=== PATIENT | male | born 1960 | race Caucasian/White ===

== ENCOUNTER → 2016-12-10 | Outpatient (CLI) | payer SELFPAY ==
[2016-12-10 09:38] LABS: Basophils # (A) 0.1 k/uL (0-0.2); Basophils % (A) 1 %; CHCM 35.5; Eosinophils # (A) 0.1 k/uL (0-0.7); Eosinophils % (A) 2 %; HCT 49.5 % (39.0-53.0); HDW 2.81; HGB 16.8 gm/dL (13.0-17.5); Luc # (Auto) 0.14; Luc % (Auto) 2; Lymphocytes # (A) 2.3 k/uL (1.0-4.8); Lymphocytes % (A) 32 %; MCH 29.8 pg (25.0-35.0); MCHC 33.9 g/dL (31.0-37.0); MCV 87.9 fL (80.0-100.0); Mean Platelet Volume 8.1; Monocytes # (A) 0.4 k/uL (0-1.0); Monocytes % (A) 6 %; Neutrophils # (A) 4.1 k/uL (1.3-7.7); Neutrophils % (A) 57 %; RBC 5.63 m/uL (4.30-5.90); RDW 13.2 % (11.5-15.5); WBC 7.2 k/uL (3.8-10.6); WBC (Perox) 7.33
[2016-12-10 13:17] LABS: ALT 47 U/L (21-72); AST 29 U/L (17-59); Alkaline Phosphatase 89 U/L (38-126); Anion Gap 11 mmol/L; Blood Urea Nitrogen 16 mg/dL (9-20); Calcium 9.3 mg/dL (8.4-10.2); Carbon Dioxide 26 mmol/L (22-30); Chloride 105 mmol/L (98-107); Cholesterol 140 mg/dL (<200); Glucose 109 mg/dL (74-99); HDL Cholesterol 37 mg/dL (40-60); Non-African American GFR(MDRD) >60 (>60 ml/min/1.73 sqM); Potassium 4.2 mmol/L (3.5-5.1); Sodium 142 mmol/L (137-145); Total Bilirubin 0.7 mg/dL (0.2-1.3); Total Protein 7.2 g/dL (6.3-8.2); Triglycerides 112 mg/dL (<150)
== END | disposition home or self-care (01) ==
LOC: LABWHC1 09:20
PROVIDERS: ATTEND Internal Medicine
DX: E78.2 Mixed hyperlipidemia (principal); I10 Essential (primary) hypertension; Z12.5 Encounter for screening for malignant neoplasm of prostate
CPT/HCPCS: 80061; 80053; 85025; 36415; G0103

== ENCOUNTER → 2020-04-28 | Outpatient (CLI) | payer OTHER ==
[2020-04-28 10:06] LABS: Basophils # (A) 0.1 k/uL (0-0.2); Basophils % (A) 1 %; Eosinophils # (A) 0.1 k/uL (0-0.7); Eosinophils % (A) 2 %; HCT 49.7 % (39.0-53.0); HGB 16.9 gm/dL (13.0-17.5); Lymphocytes # (A) 2.4 k/uL (1.0-4.8); Lymphocytes % (A) 34 %; MCH 30.3 pg (25.0-35.0); MCHC 34.1 g/dL (31.0-37.0); Mean Platelet Volume 9.1; Monocytes # (A) 0.4 k/uL (0-1.0); Monocytes % (A) 6 %; Neutrophils # (A) 3.8 k/uL (1.3-7.7); Neutrophils % (A) 54 %; Platelet Count 141 k/uL (150-450); RBC 5.58 m/uL (4.30-5.90); RDW 13.7 % (11.5-15.5); WBC 6.9 k/uL (3.8-10.6)
[2020-04-28 17:48] LABS: African American GFR (CKD) 93.7 (60.0-200.0); Albumin 4.5 g/dL (3.80-4.90); Albumin/Globulin Ratio 1.88 (1.60-3.17); Anion Gap 8.4 mmol/L (4.00-12.00); Calcium 9.4 mg/dL (8.7-10.3); Carbon Dioxide 25.6 mmol/L (21.6-31.8); Chol/HDL Ratio 3.91; Globulin 2.4 g/dL (1.6-3.3); LDL Cholesterol,Calculated 70.2 mg/dL (0.0-131.0); Non-African American GFR(CKD) 80.9 (60.0-200.0); Potassium 4.4 mmol/L (3.5-5.5); Total Bilirubin 0.7 mg/dL (0.2-1.2); Total Protein 6.9 g/dL (6.2-8.2); VLDL Calculation 22.8 mg/dL (5.00-40.00)
== END | disposition home or self-care (01) ==
LOC: LABWHC1 08:48
PROVIDERS: ATTEND Internal Medicine
DX: Z00.00 Encounter for general adult medical examination without abnormal findings (principal); Z12.5 Encounter for screening for malignant neoplasm of prostate
CPT/HCPCS: 80061; 80053; 85025; 36415; G0103

== ENCOUNTER 2024-07-03 21:22 | Observation (INO) | payer MEDICARE, OTHER ==
[~2024-07-03 21:22] MED LIST: ASPIRIN 81 MG ONE; NITROGLYCERIN OINT 1 INCH/GM PACKET TOPICAL ONE; SODIUM CHLORIDE 0.9% 1,000 ML BAG ONE
[2024-07-04] MEDS ORDERED: LORazepam 1 MG TAB ONE ×2 (00:37→21:07)
[2024-07-04] MEDS ORDERED: lisinopriL 20 MG TAB ONE ×3 (00:47→21:01)
[2024-07-04] MEDS ORDERED: MIDAZOLAM 2 MG/2 ML VIAL ONE ×2 (12:15→12:22)
[2024-07-04] MEDS ORDERED: fentaNYL (PF) 50 MCG/ML 2 ML AMP ONE (12:17)
[2024-07-04] MEDS: IOPAMIDOL-370 200ML BTL INJ ONE (12:18)
[2024-07-04] MEDS ORDERED: LIDOCAINE 1% INJ 10MG/ML (20 ML MDV) ONE (12:22)
[2024-07-04] MEDS ORDERED: VERAPAMIL 2.5 MG/ML 4 ML VIAL ONE (12:22)
[2024-07-04] MEDS ORDERED: HEPARIN SODIUM 1,000 UN/ML (10ML VL) ONE (12:22)
[2024-07-04] MEDS ORDERED: amLODIPine 5 MG TAB ONE (13:25)
[2024-07-04] MEDS ORDERED: ATORVASTATIN 40 MG TAB ONE (13:27)
[2024-07-04] MEDS ORDERED: METOPROLOL SUCCINATE (ER) 50 MG TAB.ER.24H PO ONE (13:27)
[2024-07-04] MEDS ORDERED: HEPARIN SOD,PORK IN 0.45% NACL 250 ML IV ONE (16:40)
[2024-07-05] MEDS ORDERED: HEPARIN SODIUM 1,000 UN/ML (10ML VL) ONE (00:59)
[2024-07-05] MEDS ORDERED: ASPIRIN 81 MG ONE (07:53)
[2024-07-05] MEDS ORDERED: lisinopriL 20 MG TAB ONE ×2 (07:53→21:04)
[2024-07-05] MEDS ORDERED: ATORVASTATIN 40 MG TAB ONE (07:53)
[2024-07-05] MEDS ORDERED: amLODIPine 5 MG TAB ONE (07:53)
[2024-07-05] MEDS ORDERED: METOPROLOL SUCCINATE (ER) 50 MG TAB.ER.24H PO ONE (07:53)
[2024-07-05] MEDS ORDERED: HEPARIN SOD,PORK IN 0.45% NACL 250 ML IV ONE (18:15)
[2024-07-05] MEDS ORDERED: LORazepam 1 MG TAB ONE (21:06)
[2024-07-06] MEDS ORDERED: ACETAMINOPHEN IV (For NPO) 1,000 MG/100 ML VIAL ONE (08:00)
[2024-07-06] MEDS ORDERED: ATORVASTATIN 20 MG TAB ONE (09:19)
[2024-07-06] MEDS ORDERED: METOPROLOL SUCCINATE (ER) 50 MG TAB.ER.24H PO ONE ×2 (09:19→09:37)
[2024-07-06] MEDS ORDERED: ATORVASTATIN 40 MG TAB ONE (09:19)
[2024-07-06] MEDS ORDERED: amLODIPine 5 MG TAB ONE (09:19)
[2024-07-06] MEDS ORDERED: lisinopriL 20 MG TAB ONE (09:37)
[2024-07-06] MEDS ORDERED: ASPIRIN 81 MG ONE ×2 (10:23→10:29)
--- NOTE | 2024-07-27 12:25 | CA ---
Stress Echo Report Nino Byers Age: 63 Gender: M : 1960 Exam Date: 07/04/2024 11:16 Exam Location: [place] Stress Ht (in): 70 Wt (lb): 190 Ordering Physician: Referring Physician: LUISA, Cnc Mill Programmer: Quin Sandoval RDCS Technologist Procedure CPT: Indication: Chest pain, unspecified ICD-9 Codes: R079 Rhythm: Patient History: Chest pain, hypertrension and history of ASCAD Cardiac Medications: Medications in past 24 hours: Contrast: N/A Stress Results Protocol: Erik Total dose(mL): Exercise Duration (min:sec): 10:[address] Depression (mm): Angina Score: Hall Score: METS: 11.5 Resting HR: 57 Resting BP: 175 / 96 Peak HR: 128 Peak BP: 213 / 63 Max Predicted HR: 155 83 % Max Predicted HR Target HR: 132 Double Product: [id number] Stress Summary: Patient exercised on Erik protocol for 10 minutes 2 seconds achieving 11.5 METS. Patient was able to achieve 84% of aged. Maximum heart rate. Status post terminated because patient got tired and fatigued. There was no reported chest pain or shortness of breath with activity. BP Response: normal response Reason for Termination: Reached target heart rate or work-load Cardiac Symptoms: No symptoms ECG Analysis Resting ECG: Resting ECG shows normal sinus rhythm, mild LVH by voltage criteria Stress EC mm flat ST depressions in inferolateral leads Arrhythmia: There were frequent monomorphic PVCs noticed during the stress test. There were no sustained arrhythmias Echo Analysis Resting Echo: Normal global systolic function. Mild basal to mid inferior wall hypokinesia at rest Peak Echo Analysis: This stress induced worsening of inferolateral wall motion. MEASUREMENTS (Male/Female) Normal Values CONCLUSIONS Abnormal treadmill echo stress test Ischemic ECG and echocardiographic response to treadmill exercise Excellent exercise tolerance for age achieving 11.5 METS Normal hemodynamic and clinical response to exercise Dr Jakob Miguel (Electronically Signed) Final Date: 04 July 2024 13:31
--- NOTE | 2024-07-31 19:26 | XR ---
EXAMINATION TYPE: XR chest 2V DATE OF EXAM: 07/31/2024 COMPARISON: 07/11/2024 INDICATION: Chest pain TECHNIQUE: Frontal and lateral views of the chest are obtained. FINDINGS: The heart size is normal. The pulmonary vasculature is normal. Previous left lower lobe infiltrate has resolved. No residual pneumothorax evident.. Some hyperinfla tion and increased AP diameter of the thorax is present. Consider some emphysematous change. IMPRESSION: 1. No acute pulmonary process
--- NOTE | 2024-08-02 11:07 | CT ---
Patient Nino Byers ID [id number] Order # EXAMINATION TYPE: CT chest wo con DATE OF EXAM: 07/06/2024 COMPARISON: No comparison available on downtime PACS. HISTORY: Chest pain CT DLP: 476.8 mGycm, Automated exposure control for dose reduction was used. CONTRAST: Performed injected with 0 mL of Isovue 300. TECHNIQUE: Axial images were obtained at 5 mm thick sections. Reconstructed images are reviewed on [employer] computer in the coronal plane. FINDINGS: Portion of the thyroid visualized is normal. No suspicious lung nodules or focal infiltrates are present. No enlarged mediastinal or hilar adenopathy is evident. The ascending aorta diameter at the level o f the main pulmonary artery is 3.4 cm. The main pulmonary artery diameter at the bifurcation is 2.5 cm. Coronary artery calcification is present. Limited CT sections are obtained through the upper abdomen. Abdomen is essentially unremarkable. IMPRESSION: 1. No acute pulmonary process radiographically apparent.
--- NOTE | 2024-08-07 15:52 | US ---
Site ID [facility] Nino Henning ID [id number] 1960 Age/Gender: 63Y, O Order # N/A Procedure US carotid duplex BILAT Date 07/04/2024 5:18:00 PM EXAMINATION TYPE: US carotid duplex BILAT DATE OF EXAM: 07/17/2024 COMPARISON: None, please note PACS Production downtime occurred during the radiologist interpretation of these images with limited priors/reports. CLINICAL INDICATION: 63 year old with history of open heart. TECHNIQUE: Carotid duplex ultrasound examination. Indirect Doppler criteria was utilized. FINDINGS: EXAM MEASUREMENTS: RIGHT: Peak Systolic Velocity (PSV) cm/sec ----- Right CCA: 57.3 ----- Right ICA: 89.9 ----- Right ECA: 132.3 ICA/CCA ratio: 1.6 RIGHT: End Diastole cm/sec ----- Right CCA: 14.2 ----- Right ICA: 23.3 ----- Right ECA: 30.5 LEFT: Peak Systolic Velocity (PSV) cm/sec ----- Left CCA: 60.3 ----- Left ICA: 135.7 ----- Left ECA: 77.5 ICA/CCA ratio: 2.2 LEFT: End Diastole cm/sec ----- Left CCA: 8.7 ----- Left ICA: 29.4 ----- Left ECA: 8.9 VERTEBRALS (direction of flow): Right Vertebral: Antegrade Left Vertebral: Antegrade INSIDE TECHNICAL SALES REPRESENTATIVE NOTES: Slightly limited by tortuous vessels. Slightly elevated velocity seen within the l eft lobe is still ICA and right ECA. Mild atherosclerotic plaque at the left carotid bulb. IMPRESSION: 1. Approximately 50-69 % stenosis within the proximal left ICA based on peak systolic velocity and r atio. 2. No hemodynamically significant stenosis involving the proximal right ICA. Criteria for Assigning % of Stenosis / Diameter reduction (Estimation based on the indirect measurements of the internal carotid artery velocities (ICA PSV). 1. Normal (no stenosis)=ICA PSV < 125 cm/s: ratio < 2.0: ICA EDV<40 cm/s. 2. Less than 50% stenosis=ICA PSV < 125 cm/s: ratio < 2.0: ICA EDV<40 cm/s. 3. 50 to 69% stenosis=ICA PSV of 125 to 230 cm/s: ration 2.0 ? 4.0: ICA EDV 40-100 cm/s. 4. Greater than 70% stenosis to near occlusion= ICA PSV > 230 cm/s: ratio > 4.0: ICA EDV > 100 cm/s. 5. Near occlusion= ICA PSV velocities may be low or undetectable: variable ratio and ICA EDV. 6. Total occlusion=unable to detect flow.
--- NOTE | 2024-08-07 15:52 | US ---
Site ID [facility] Nino Henning ID [id number] 1960 Age/Gender: 63Y, O Order # N/A Procedure US vein mapping BILAT Date 07/04/2024 5:33:00 PM EXAMINATION TYPE: US vein mapping BILAT DATE OF EXAM: 07/17/2024 11:54 PM COMPARISON: None, please note PACS Production downtime occurred during the radiologist interpretation of these images with limited priors/reports. CLINICAL INDICATION: 63 year old with history of open heart. SIDE PERFORMED: Bilateral TECHNIQUE: Lower extremity saphenous vein is examined and measured utilizing real time linear array sonography. DUPLEX FINDINGS: Greater Saphenous: Color flow seen Measurements in mm: Right Greater Saphenous: Groin: 5 x 5 mm High Thigh: 2 x 3 mm Mid Thigh: 2 x 2 mm Above Knee: 1 x 2 mm Knee: 3 x 4 mm Below Knee: 3 x 4 mm Mid Calf: 3 x 4 mm At Ankle: 2 x 3 mm Left Greater Saphenous: Groin: 4 x 7 mm High Thigh: 5 x 4 mm Mid Thigh: 4 x 4 mm Above Knee: 4 x 6 mm Knee: 3 x 4 mm Below Knee: 4 x 4 mm Mid Calf: 3 x 4 mm At Ankle: 2 x 2 mm IMPRESSION: 1. Bilateral GSV measurements listed above. 2. Performing surgeon to determine viability as conduit.
--- NOTE | 2024-08-07 15:53 | US ---
Site ID [facility] Patient Nino Byers ID [id number] 1960 Age/Gender: 63Y, O Order # N/A Procedure US radial artery UE LT Date 07/04/2024 5:47:00 PM EXAMINATION TYPE: Pre-Operative Non-Invasive Evaluation of the hand for Potential Radial Artery [address] st, Measurements only DATE OF EXAM: 07/17/2024 11:52 PM CLINICAL INDICATION: 63 year old with history of open heart. SIDE PERFORMED: Left TECHNIQUE: Radial artery is measured utilizing real time linear array sonography. Dominant hand: Right Duplex Findings: Radial Artery: Color flow seen Measurements in mm, transverse view: Left Radial Proximal: 4 x 4 mm Mid: 3 x 3 mm Distal: 3 x 3 mm IMPRESSION: 1. Left radial artery measurements listed above. 2. Performing surgeon to determine viability as conduit.
== END 2024-07-06 13:00 | disposition home or self-care (01) ==
LOC: UNDOADMIN 21:22 → 6NMEDSUR 21:22 → INTOOBSV 22:00 → 6NMEDSUR 22:00 → UNDODISIN 07-06 13:00
PROVIDERS: ADMIT Internal Medicine; ATTEND Internal Medicine
DX: I25.110 Atherosclerotic heart disease of native coronary artery with unstable angina pectoris (principal); T82.855A Stenosis of coronary artery stent, initial encounter; Y84.8 Other medical procedures as the cause of abnormal reaction of the patient, or of later complication, without mention of misadventure at the time of the procedure; I10 Essential (primary) hypertension; I49.3 Ventricular premature depolarization; E78.5 Hyperlipidemia, unspecified; F12.90 Cannabis use, unspecified, uncomplicated; F41.9 Anxiety disorder, unspecified; N40.0 Benign prostatic hyperplasia without lower urinary tract symptoms; Z95.5 Presence of coronary angioplasty implant and graft; Z79.82 Long term (current) use of aspirin; Z79.899 Other long term (current) drug therapy
CPT/HCPCS: 71046; 71250; 80061; 80074; 83036; 86850; 86900; 86901; 86920; 87070; 93005; 93351; 93458; 93880; 93970; 94150; 99285

== ENCOUNTER 2024-07-09 08:00 | Inpatient (IN) | payer MEDICARE, OTHER ==
[~2024-07-09 08:00] MED LIST changes: +ALBUMIN HUMAN 5% (25gm) 500 ML VIAL IVPB ONE; -ASPIRIN 81 MG ONE; +HEPARIN SODIUM,PORCINE 10,000 UNIT/ML 1 ML VIAL ONE; +LACTATED RINGERS 1,000 ML BAG ONE; +MIDAZOLAM 1 MG/ML 5 ML VIAL ONE; +MIDAZOLAM HCL 10 MG/10 ML VIAL ONE; -NITROGLYCERIN OINT 1 INCH/GM PACKET TOPICAL ONE; +PROPOFOL 10 MG/ML 20 ML VIAL IV ONE; +PROTAMINE SULFATE 10 MG/ML 25 ML VIAL IV ONE; -SODIUM CHLORIDE 0.9% 1,000 ML BAG ONE; +SODIUM CHLORIDE 0.9% 50 ML BAG ONE; +VECURONIUM 10 MG VIAL IV ONE; +ceFAZolin 10 GM VIAL IVPB ONE; +ePHEDrine 50 MG/ML 1 ML VIAL ONE; +fentaNYL (PF) 50 MCG/ML 2 ML AMP ONE; +fentaNYL (PF) 50 MCG/ML 50 ML VIAL ONE
[2024-07-09] MEDS ORDERED: NITROGLYCERIN-D5W PMX 50 MG/250 ML BOTTLE IV ONE (12:09)
[2024-07-09] MEDS ORDERED: DILTIAZEM 125 MG/25 ML VIAL IV ONE ×2 (12:09→23:59)
[2024-07-09] MEDS ORDERED: SODIUM CHLORIDE 0.9% 100 ML BAG IV ONE ×2 (12:09)
[2024-07-09] MEDS ORDERED: PAPAVERINE 30 MG/ML 2 ML VIAL ONE (12:09)
[2024-07-09] MEDS ORDERED: SODIUM CHLORIDE 0.9% 50 ML BAG IV ONE (12:09)
[2024-07-09] MEDS ORDERED: ceFAZolin 10 GM VIAL IVPB ONE (12:09)
[2024-07-09] MEDS ORDERED: SODIUM CHLORIDE 0.9% 500 ML BAG ONE (12:09)
[2024-07-09] MEDS ORDERED: HEPARIN SODIUM,PORCINE 5,000 UNIT/ML 1 ML VIAL ONE ×2 (12:09→21:37)
[2024-07-09] MEDS ORDERED: LACTATED RINGERS 1,000 ML BAG ONE (12:09)
[2024-07-09] MEDS ORDERED: ALBUMIN HUMAN 5% 250 ML IVPB ONE (12:38)
[2024-07-09] MEDS ORDERED: DEXMEDETOMIDINE/0.9% NACL(PMX) 400 MCG/100 ML IV ONE (13:23)
[2024-07-09] MEDS ORDERED: CLEVIDIPINE BUTYRATE 25 MG/50 ML VIAL IV ONE (13:23)
[2024-07-09] MEDS ORDERED: MAGNESIUM SULFATE-D5W PMX 200 ML IVPB ONE (15:03)
[2024-07-09] MEDS ORDERED: ACETAMINOPHEN IV (For NPO) 100 ML ONE ×2 (18:17→23:55)
[2024-07-09] MEDS ORDERED: METOPROLOL TARTRATE 12.5 MG TAB ONE (21:37)
[2024-07-09] MEDS ORDERED: SENNOSIDES 8.6 MG TAB ONE (21:38)
[2024-07-09] MEDS ORDERED: MUPIROCIN 2% OINT 22 GM TUBE ONE (23:59)
[2024-07-09] MEDS ORDERED: IPRATROPIUM-ALBUTEROL 3 ML NEB ONE (23:59)
[2024-07-09] MEDS ORDERED: SODIUM CHLORIDE 0.9% 100 ML BAG ONE (23:59)
[2024-07-10] MEDS ORDERED: HEPARIN SODIUM,PORCINE 5,000 UNIT/ML 1 ML VIAL ONE ×3 (06:25→21:39)
[2024-07-10] MEDS ORDERED: ATORVASTATIN 40 MG TAB ONE (08:33)
[2024-07-10] MEDS ORDERED: CLOPIDOGREL 75 MG TAB ONE (08:33)
[2024-07-10] MEDS ORDERED: ASPIRIN 325 MG TAB ONE (08:33)
[2024-07-10] MEDS ORDERED: METOPROLOL TARTRATE 12.5 MG TAB ONE ×2 (08:34→11:57)
[2024-07-10] MEDS ORDERED: amLODIPine 5 MG TAB ONE (10:00)
[2024-07-10] MEDS ORDERED: PANTOPRAZOLE 40 MG TABLET PO ONE (14:21)
[2024-07-10] MEDS ORDERED: KETOROLAC 15 MG/ML 1 ML VIAL ONE (19:34)
[2024-07-10] MEDS ORDERED: METOPROLOL TARTRATE 25 MG TAB ONE (21:39)
[2024-07-10] MEDS ORDERED: LORazepam 1 MG TAB ONE (21:39)
[2024-07-10] MEDS ORDERED: DOCUSATE 100 MG CAP ONE (21:41)
[2024-07-10] MEDS ORDERED: SENNOSIDES-DOCUSATE SODIUM 1 EACH TAB PO ONE (21:44)
[2024-07-10] MEDS ORDERED: DILTIAZEM 125 MG/25 ML VIAL IV ONE (23:59)
[2024-07-10] MEDS ORDERED: SODIUM CHLORIDE 0.9% 1,000 ML BAG ONE (23:59)
[2024-07-10] MEDS ORDERED: SODIUM CHLORIDE 0.9% 100 ML BAG IV ONE (23:59)
[2024-07-11] MEDS ORDERED: KETOROLAC 15 MG/ML 1 ML VIAL ONE ×4 (05:26→21:49)
[2024-07-11] MEDS ORDERED: HEPARIN SODIUM,PORCINE 5,000 UNIT/ML 1 ML VIAL ONE ×3 (05:26→21:48)
[2024-07-11] MEDS ORDERED: METOPROLOL TARTRATE 25 MG TAB ONE ×4 (05:26→21:49)
[2024-07-11] MEDS ORDERED: PANTOPRAZOLE 40 MG TABLET PO ONE (08:35)
[2024-07-11] MEDS ORDERED: ASPIRIN 325 MG TAB ONE (08:35)
[2024-07-11] MEDS ORDERED: CLOPIDOGREL 75 MG TAB ONE (08:35)
[2024-07-11] MEDS ORDERED: amLODIPine 5 MG TAB ONE (08:35)
[2024-07-11] MEDS ORDERED: ATORVASTATIN 40 MG TAB ONE (08:38)
[2024-07-11] MEDS ORDERED: MAGNESIUM HYDROXIDE 2,400 MG/30 ML CUP ONE (08:45)
[2024-07-11] MEDS ORDERED: FUROSEMIDE 10 MG/ML 2 ML VIAL ONE (08:46)
[2024-07-11] MEDS ORDERED: INSULIN ASPART (NovoLOG) 100 UNIT/ML VIAL SQ ONE ×2 (11:58→21:50)
[2024-07-11] MEDS ORDERED: IPRATROPIUM-ALBUTEROL 3 ML NEB ONE (17:57)
[2024-07-11] MEDS ORDERED: ACETAMINOPHEN TAB 325 MG TAB ONE (21:48)
[2024-07-11] MEDS ORDERED: SENNOSIDES-DOCUSATE SODIUM 1 EACH TAB PO ONE (21:49)
[2024-07-11] MEDS ORDERED: LORazepam 1 MG TAB ONE (21:49)
[2024-07-11] MEDS ORDERED: SODIUM CHLORIDE 0.9% 100 ML BAG ONE (23:59)
[2024-07-11] MEDS ORDERED: AMIODARONE 50 MG/ML 9 ML VIAL IV ONE (23:59)
[2024-07-11] MEDS ORDERED: INSULIN REGULAR 100 UNIT/ML VIAL (IV) ONE (23:59)
[2024-07-11] MEDS ORDERED: DEXTROSE 5% IN WATER 100 ML BAG IV ONE (23:59)
[2024-07-11] MEDS ORDERED: FINASTERIDE 5 MG TAB ONE (23:59)
[2024-07-11] MEDS ORDERED: AMIODARONE 50 MG/ML 3 ML VIAL IV ONE (23:59)
[2024-07-11] MEDS ORDERED: SODIUM CHLORIDE 0.9% 1,000 ML BAG ONE (23:59)
[2024-07-11] MEDS ORDERED: DEXTROSE 5% IN WATER 250 ML BAG ONE (23:59)
[2024-07-12] MEDS ORDERED: IPRATROPIUM-ALBUTEROL 3 ML NEB ONE ×2 (05:40→19:48)
[2024-07-12] MEDS ORDERED: METOPROLOL TARTRATE 25 MG TAB ONE ×3 (06:39→18:26)
[2024-07-12] MEDS ORDERED: POTASSIUM CHLORIDE ER 20 MEQ TAB.ER PO ONE (06:39)
[2024-07-12] MEDS ORDERED: HEPARIN SODIUM,PORCINE 5,000 UNIT/ML 1 ML VIAL ONE ×3 (06:39→20:17)
[2024-07-12] MEDS ORDERED: KETOROLAC 15 MG/ML 1 ML VIAL ONE ×3 (06:44→18:26)
[2024-07-12] MEDS ORDERED: ATORVASTATIN 40 MG TAB ONE (07:49)
[2024-07-12] MEDS ORDERED: CLOPIDOGREL 75 MG TAB ONE (07:50)
[2024-07-12] MEDS ORDERED: ASPIRIN 325 MG TAB ONE (07:50)
[2024-07-12] MEDS ORDERED: PANTOPRAZOLE 40 MG TABLET PO ONE (07:50)
[2024-07-12] MEDS ORDERED: AMIODARONE 200 MG TAB ONE ×3 (07:50→20:21)
[2024-07-12] MEDS ORDERED: amLODIPine 5 MG TAB ONE (07:50)
[2024-07-12] MEDS ORDERED: SENNOSIDES-DOCUSATE SODIUM 1 EACH TAB PO ONE (20:17)
[2024-07-12] MEDS ORDERED: LORazepam 1 MG TAB ONE (20:18)
[2024-07-12] MEDS ORDERED: APIXABAN 2.5 MG TABLET ONE (20:18)
[2024-07-12] MEDS ORDERED: SODIUM CHLORIDE 0.9% 1,000 ML BAG ONE (23:59)
[2024-07-12] MEDS ORDERED: FINASTERIDE 5 MG TAB ONE (23:59)
[2024-07-13] MEDS ORDERED: KETOROLAC 15 MG/ML 1 ML VIAL ONE ×2 (00:21→06:29)
[2024-07-13] MEDS ORDERED: METOPROLOL TARTRATE 25 MG TAB ONE ×3 (00:21→12:48)
[2024-07-13] MEDS ORDERED: HEPARIN SODIUM,PORCINE 5,000 UNIT/ML 1 ML VIAL ONE (06:29)
[2024-07-13] MEDS ORDERED: POTASSIUM CHLORIDE ER 20 MEQ TAB.ER PO ONE (06:55)
[2024-07-13] MEDS ORDERED: PANTOPRAZOLE 40 MG TABLET PO ONE (08:08)
[2024-07-13] MEDS ORDERED: AMIODARONE 200 MG TAB ONE (08:08)
[2024-07-13] MEDS ORDERED: amLODIPine 5 MG TAB ONE (08:08)
[2024-07-13] MEDS ORDERED: ASPIRIN 81 MG ONE (08:08)
[2024-07-13] MEDS ORDERED: ATORVASTATIN 40 MG TAB ONE (08:08)
[2024-07-13] MEDS ORDERED: APIXABAN 5 MG TAB ONE (08:09)
[2024-07-13] MEDS ORDERED: CALCIUM CHLORIDE 100 MG/ML 10 ML SYRINGE ONE (11:37)
--- NOTE | 2024-07-30 11:04 | XR ---
Nino Byers ID: [id number] : 1960 EXAMINATION TYPE: XR chest 1V DATE OF EXAM: 07/11/2024 COMPARISON: 07/10/2024 HISTORY: 63-year-old male shortness of breath, ICU follow-up TECHNIQUE: Single frontal view of the chest is obtained. FINDINGS: Median sternotomy wires and post-CABG clips. Mediastinal drain remains in place as well as a left-sided chest tube. Right IJ sheath removal of the Cumberland-Taov catheter. Heart mildly enlarged. I nterstitial patchy opacities persist. On the present exam, there may be a trace 3 mm left inguinal pn eumothorax. IMPRESSION: 1. Ongoing interstitial and patchy opacities, possible mild patchy pulmonary edema. 2. Left-sided chest tube in place. There may be a trace 3 mm left apical pneumothorax.
--- NOTE | 2024-08-07 10:54 | XR ---
Nino Byers ID: [id number] : 1960 EXAMINATION TYPE: XR chest 1V DATE OF EXAM: 07/10/2024 COMPARISON: 07/09/2024 HISTORY: 63 year-old male shortness of breath, ICU follow-up TECHNIQUE: Single frontal view of the chest is obtained. FINDINGS: Right IJ Ogema-Tavo catheter tip at the right hilum, slightly more distal positioning as co mpared to yesterday's exam. Median sternotomy wires with post-CABG clips. Left-sided chest tube in pl ruth ann. No appreciable pneumothorax. Interval extubation with diminished lung volumes. Interstitial dens ity and patchy bibasilar opacity slightly increased. IMPRESSION: 1. Right IJ Ogema-Tavo catheter tip at the right hilum, slightly more distal than on yesterday's exam. 2. Interval extubation. Mild pulmonary vascular congestion may be slightly increased. Patchy bibasila r opacities are increased as well, probably atelectasis.
--- NOTE | 2024-08-13 13:03 | XR ---
Patient: Nino Byers Ordering Physician: Unknown, Unknown ID: MPH Phone, Pager: Phone: N/A Pager: N/A : 1960 Age/Gender: 63Y, M Primary Location: N/A Procedure: CHEST XR 2V Study Date: 07/12/2024 6:38:46 AM EXAMINATION TYPE: XR chest 1V DATE OF EXAM: 07/12/2024 COMPARISON: 07/11/2024 HISTORY: 63-year-old male post-CABG TECHNIQUE: Single frontal view of the chest is obtained. FINDINGS: Median sternotomy wires with postoperative clips. Patchy atelectasis remains at the left b ase though with improving aeration from prior. Similar trace 4 mm left apical pneumothorax. There is a trace right apical pneumothorax also measuring 1.0 cm. IMPRESSION: Similar trace 4 mm left apical pneumothorax. New 1 cm small right apical pneumothorax. O verall improving aeration with residual patchy atelectasis at the left lower lung. Possible residual mild pulmonary vascular congestion.
--- NOTE | 2024-08-17 15:19 | OP ---
OPERATIVE REPORT DATE OF SERVICE : 07/09/2024 PREOPERATIVE DIAGNOSIS: Coronary artery disease. POSTOPERATIVE DIAGNOSIS: Coronary artery disease. PROCEDURE: Off-pump coronary artery bypass grafting x4 with sequential left internal mammary artery to diagonal left anterior descending, left radial artery graft to obtuse marginal, saphenous vein graft to posterior descending coronary arteries. ASSISTANTS: 1. ORLIN Boone. 2. Bruce Herring NP. INDICATIONS: The patient is a 63-year-old male with a known history of coronary artery disease with previous stenting in 1998 and 2003. He presented to the hospital last week with unstable angina, was admitted and underwent cardiac catheterization demonstrating left main triple-vessel coronary artery disease. The patient was medically stabilized and discharged home and readmitted for CABG this morning. DESCRIPTION OF PROCEDURE: The patient was brought to the operating room, laid supine on the operating table, anesthetized and intubated. ALLEN probe was placed. The anterior torso, bilateral lower extremities, and left upper extremity were sterilely prepped and draped. Greater saphenous vein was first harvested from the right thigh, but was small and had numerous varicosities. We then harvested saphenous vein from the left thigh and it was of much better quality. Endoscopic vein harvest was used. Simultaneously, the left radial artery was harvested using endovascular vein harvest. Simultaneous to all of this, midline sternotomy was performed. The left sharon-sternum was retracted upwards and the left internal mammary artery harvested on a vascularized pedicle, left intact in its arch from the subclavian and divided distally. There was an excellent conduit. The left pleural space was drained with a 32-Bhutanese chest tube. Then, a sternal retractor was placed and the pericardium was opened in the midline. Heart was exposed with pericardial suture. The patient was systemically heparinized and ACTs were maintained greater than 250 during grafting. We began by placing a 35 mm AtriCure clip at the base of the left atrial appendage. This proceeded uneventfully. Next, we planned out a sequential REID to the diagonal and LAD. The REID was tunneled into the pericardial space and the end of the REID prepared for the distal anastomosis. We then performed a longitudinal slit in the undersurface of the REID for the diagonal anastomosis. Suction stabilization was used in distal anastomoses. We began with a [id number] anastomosis to the diagonal. Diagonal was open. Blood flow controlled with a 1.5 mm flow-through. It was a 1.5 mm vessel. Anastomosis was constructed with running 8-0 Prolene suture. On completion of the anastomosis, the flow-through was removed, effectively probing the proximal and distal portions of the anastomosis. The suture was tied with good resulting hemostasis. Bleeding was noted at the end of the REID and this augmented when removing the bulldog clamp, which was then placed distally on the vessel. FAWAD was tacked surrounding epicardium with 6-0 silk sutures. LAD was stabilized as it exited from an intramyocardial course about retirement down the anterior wall in the middle-third of the LAD. It was opened here and blood flow controlled with a 2 mm flow-through. It was a 2 mm vessel. End-to-side anastomosis between the REID and the LAD was performed with running 8-0 Prolene suture. On completion of the anastomosis, the flow-through was removed, effectively probing the proximal and distal portions of the anastomosis. Suture was tied with good resulting hemostasis. Inflow was opened. The graft was noted to fill well. There was more than adequate length. FAWAD pedicle was tacked surrounding epicardium with 6-0 silk sutures. Next, the inferior wall of the heart was exposed. The PDA was a 1.5 to 1.75 mm vessel. The TYRONE was very small. The PDA was stabilized and opened longitudinally, and blood flow controlled with a 1.5 mm flow-through. End-to-side anastomosis between the left thigh, saphenous vein, and the PDA was performed with running 7-0 Prolene suture. On completion of the anastomosis, the flow-through was removed, effectively probing the proximal and distal portions of the anastomosis. The suture was tied with good resulting hemostasis. Good backbleeding was noted into the vein to the first valve. Heart was lowered in anatomic position. We were able to divide the vein just at the first valve, giving us a valve with segment for the graft. Heartstring device was deployed in the proximal ascending aorta. Side-to-end anastomosis between the aorta and the saphenous vein was performed with running 5-0 Prolene suture. On completion of the anastomosis, Heartstring device was removed. The vein graft was deaired by needle holes. The inflow was open. The graft was noted to lay well. Good hemostasis was present in both anastomoses. Next, the lateral wall of the heart was exposed. Major marginal branch was stabilized fairly proximally. It was a 1.75 mm vessel. It was opened and blood flow controlled with a 1.5 mm flow-through. End-to-side anastomosis between left radial artery and the obtuse marginal was performed with running 7-0 Prolene suture. On completion of the anastomosis, the flow-through was removed, effectively probing the proximal and distal portions of the anastomosis. The suture was tied with good resulting hemostasis. Good backbleeding was noted into the radial artery. Heart was lowered in anatomic position. Radial artery was brought beneath the REID up to the ascending aorta. It was cut to appropriate length. A second Heartstring device was deployed in the ascending aorta and the second proximal anastomosis was constructed with a running 5-0 Prolene suture. On completion of the anastomosis, the Heartstring was removed. The area was deaired by backbleeding. Suture was tied with good resulting hemostasis. Inflow was open. All anastomoses were now hemostatic. Heparin was reversed with protamine. After assuring good hemostasis, mediastinum was drained with a 36-Bhutanese chest tube and irrigated with antibiotic solution, and the sternum was closed with 8 sternal wires. Fascia was closed with 0 Ethibond. Subcutaneous and subcuticular layers were closed with layers of Vicryl suture in the leg, arm, and chest. The patient was transferred to ICU in stable condition. He was on no inotropic support and received no blood transfusions. MAGI / COSTA: [id number] /
== END 2024-07-13 14:30 | disposition home or self-care (01) | DRG 236 ==
LOC: OR 08:00 → 2SICU 12:55
PROVIDERS: ADMIT Thoracic Surgery (Cardiothoracic Vascular Surgery); ATTEND Thoracic Surgery (Cardiothoracic Vascular Surgery)
PROC: 0JH63VZ Insertion of Infusion Pump into Chest Subcutaneous Tissue and Fascia, Percutaneous Approach (ICD-10-PCS; 2024-07-09)
PROC: 5A1221Z Performance of Cardiac Output, Continuous (ICD-10-PCS; 2024-07-09)
PROC: 02100Z9 Bypass Coronary Artery, One Artery from Left Internal Mammary, Open Approach (ICD-10-PCS; principal; 2024-07-09 08:00)
PROC: 021209W Bypass Coronary Artery, Three Arteries from Aorta with Autologous Venous Tissue, Open Approach (ICD-10-PCS; 2024-07-09 08:00)
PROC: 06BP4ZZ Excision of Right Saphenous Vein, Percutaneous Endoscopic Approach (ICD-10-PCS; 2024-07-09 08:00)
PROC: 05BA4ZZ Excision of Left Brachial Vein, Percutaneous Endoscopic Approach (ICD-10-PCS; 2024-07-09 08:00)
DX: I25.110 Atherosclerotic heart disease of native coronary artery with unstable angina pectoris (principal); I10 Essential (primary) hypertension; E78.5 Hyperlipidemia, unspecified; N40.0 Benign prostatic hyperplasia without lower urinary tract symptoms
CPT/HCPCS: 36600; 71045; 71046; 86891; 94002; 94640

== ENCOUNTER → 2024-08-20 | Outpatient (CLI) | payer MEDICARE, OTHER ==
[2024-08-20 15:36] LABS: HCT 45.9 % (39.6-50.0); HGB 15.2 g/dL (13.0-17.0); MCH 29.9 pg (27.0-32.0); MCHC 33.1 g/dL (32.0-37.0); MCV 90.2 FL (80.0-97.0); NRBC Per 100 WBC 0 X 10*3/uL (0.00-0.01); Platelet Count 160 X 10*3/uL (140-440); RBC 5.09 X 10*6/uL (4.40-5.60); RDW 13.1 % (11.5-14.5); WBC 6.47 X 10*3/uL (4.50-10.00)
[2024-08-20 15:54] LABS: ALT 33 U/L (10-49); AST 23 U/L (14-35); Albumin 4.3 g/dL (3.8-4.9); Albumin/Globulin Ratio 1.59 Ratio (1.60-3.17); Alkaline Phosphatase 92 U/L (41-126); BUN/Creat Ratio 18.18 Ratio (12.00-20.00); C Reactive Protein, High Sens 0.258 mg/L (0.000-3.000); Calcium 9.7 mg/dL (8.7-10.3); Carbon Dioxide 24.3 mmol/L (21.6-31.8); Chloride 103 mmol/L (96-109); Chol/HDL Ratio 3.42 Ratio; Globulin 2.7 g/dL (1.6-3.3); Glucose 100 mg/dL (70-110); LDL Cholesterol,Calculated 67.9 mg/dL (0.0-131.0); Potassium 4.8 mmol/L (3.5-5.5); Sodium 140 mmol/L (135-145); Total Bilirubin 0.5 mg/dL (0.3-1.2)
[2024-08-20 21:47] LABS: NT-Pro-B-Type Natriuretic Pept 410 pg/mL (0-125)
== END | disposition home or self-care (01) ==
LOC: LABWHC1 12:05
PROVIDERS: ATTEND Student in an Organized Health Care Education/Training Program
DX: Z13.6 Encounter for screening for cardiovascular disorders (principal); D72.9 Disorder of white blood cells, unspecified; R79.89 Other specified abnormal findings of blood chemistry; E11.9 Type 2 diabetes mellitus without complications; I50.9 Heart failure, unspecified; E78.5 Hyperlipidemia, unspecified; E03.9 Hypothyroidism, unspecified
CPT/HCPCS: 36415; 80053; 80061; 83036; 83880; 85027; 86141

== ENCOUNTER 2024-08-29 06:14 | Day surgery (SDC) | payer MEDICARE, OTHER ==
[~2024-08-29 06:14] MED LIST changes: -ALBUMIN HUMAN 5% (25gm) 500 ML VIAL IVPB ONE; +BENZOCAINE SPRAY 1 CAN TOPICAL PRN; -HEPARIN SODIUM,PORCINE 10,000 UNIT/ML 1 ML VIAL ONE; -LACTATED RINGERS 1,000 ML BAG ONE; -MIDAZOLAM 1 MG/ML 5 ML VIAL ONE; +MIDAZOLAM 2 MG/2 ML VIAL IV PRN; -MIDAZOLAM HCL 10 MG/10 ML VIAL ONE; -PROPOFOL 10 MG/ML 20 ML VIAL IV ONE; -PROTAMINE SULFATE 10 MG/ML 25 ML VIAL IV ONE; -SODIUM CHLORIDE 0.9% 50 ML BAG ONE; -VECURONIUM 10 MG VIAL IV ONE; -ceFAZolin 10 GM VIAL IVPB ONE; -ePHEDrine 50 MG/ML 1 ML VIAL ONE; +fentaNYL (PF) 50 MCG/ML 2 ML AMP IVP PRN; -fentaNYL (PF) 50 MCG/ML 2 ML AMP ONE; -fentaNYL (PF) 50 MCG/ML 50 ML VIAL ONE
[2024-08-29 06:55] VITALS: TEMP 97.6
[2024-08-29] MEDS: SODIUM CHLORIDE 0.9% 500 ML 500 ML IV ONE (07:22)
[2024-08-29] MEDS: BENZOCAINE SPRAY 1 EACH MM ONE (07:49)
[2024-08-29] MEDS: MIDAZOLAM 2 MG/2 ML VIAL IVP ONE ×2 (07:50→07:54)
[2024-08-29] MEDS: fentaNYL (PF) 50 MCG/1 ML VIAL IVP ONE ×2 (07:52→07:53)
--- NOTE | 2024-08-29 08:16 | P.TEE ---
Date of Procedure: 08/29/24 Description of Procedure(s): Procedure performed: 1. Transesophageal Echocardiogram with color flow doppler, pulsed wave doppler and continuous wave doppler, (CPT 83874, +[id number], +[id number]) 2. Moderate conscious sedation. Sedation time 6 mins. (CPT 99090) Indications: Evaluation for candidacy of long-term anticoagulation Evaluation of patency of left atrial appendage after atrial clip ligation Evaluation of valvular function Evaluation of LVEF post CABG Consent: I have discussed the risks, benefits and alternative therapies for the above-mentioned procedure. The patient has indicated understanding and acceptance of the risks of the procedure. Signed consent was obtained and was placed in the paper chart. Procedural Steps: Timeout was performed in usual fashion. Patient's heart rate, blood pressure, oxygen saturation and ECG were monitored. Benzocaine was sprayed liberally in the back of the throat. Bite block was placed between the jaw. 4 mg of Versed and 100 mcg of Fentanyl were administered intravenously. After achieving appropriate moderate conscious sedation, ALLEN probe was advanced w ithout difficulty and without any immediate complications to the esophagus. ALLEN study was performed with color flow doppler, pulsed wave doppler and continuous wave doppler. The probe was then removed. Patient tolerated the procedure well. Patient was transferred to the post procedure area in stable and satisfactory condition. Throughout the procedure patient's heart rate, blood pressure, oxygen saturation and ECG were monitored. Total sedation time 6 mins. Complications: none FINDINGS Left Atrium: Severe left atrial dilatation. No evidence of thrombus. Normal S/D ratio of pulmonic flow. Mild systolic flow reversal noticed. Left Atrial Appendage: Excluded left atrial appendage via atrial clip ligation with no residual appendage seen visually. Frequent color-flow Doppler in that area. Inter atrial septum: Intact inter-atrial septum with no evidence of atrial septal defect or patent foramen ovale on color flow Doppler. Left Ventricle: Normal global LV size and systolic function Right Atrium: Normal overall RA size Right Ventricle: Normal global RV size and systolic function Aortic Valve: Structurally normal Trileaflet, no significant calcification. No significant stenosis or regurgitation on color doppler assessment. Mitral Valve: Struturally normal. No evidence of prolapse. No evidence of stenosis. Trace regurgitation Pulmonic Valve: No significant stenosis or regurgitation. Tricuspid Valve: Trace regurgitation Ascending aorta, Aortic root and Aortic arch: Normal size aortic root and ascending aorta. Mild intimal thickening. Descending aorta: Mild intimal thickening. No pericardial effusion CONCLUSION: Excluded left atrial appendage with no residual appendage seen. No evidence of thrombus in left atrium Severe left atrial dilatation Normal global LV systolic function No significant valvular dysfunction Plan Discontinue Eliquis Start Plavix 75 mg for 6 months post CABG. Continue aspirin, Lipitor, Continue other cardiac medications without any changes Follow-up with Dr. Miguel in 1-2 weeks Jakob Miguel MD, RPVI, FACC Thank you for allowing [facility] to participate in this patient's care. Feel free to reach out in case of any followup questions.
[2024-08-29 08:34] VITALS: RESP 16
[2024-08-29 09:23] VITALS: BP 114/58; PULSE 58
== END 2024-08-29 09:24 | disposition home or self-care (01) ==
LOC: CATHCVL 06:14
PROVIDERS: ATTEND Student in an Organized Health Care Education/Training Program
DX: Z95.1 Presence of aortocoronary bypass graft
CPT/HCPCS: 93312; 93320; 93325

== ENCOUNTER → 2024-10-26 | Outpatient (CLI) | payer MEDICARE, OTHER ==
--- NOTE | 2024-10-26 13:02 | XR ---
EXAMINATION TYPE: XR ribs 4 views LT, XR thoracic spine 4 views complete DATE OF EXAM: 10/26/2024 COMPARISON: NONE CLINICAL INDICATION: Male, 64 years old with history of M54.6 PAIN IN THORACIC SPINE S22.32XA FRACTUR E OF; FINDINGS: Left RIBS: Moderate degenerative joint space narrowing at the left AC joint. Sclerosis at the greater tuberosity suggest chronic rotator cuff tendinopathy. Median sternotomy wires and post-CABG clips. There is no displaced left rib fracture seen. Thoracic spine: 12 rib-bearing thoracic vertebral bodies. All pedicles are visualized. Mild to moderate disc/endplate degenerative change especially mid to lower thoracic spine. Additional moderate spondylotic change v isualized lower cervical spine. Alignment is maintained. Vertebral body heights are preserved. IMPRESSION: 1. Left RIBS: No displaced left rib fracture is seen. 2. Thoracic spine: Mild to moderate spondylotic degenerative disc disease mid to lower thoracic spine . Also moderate spondylotic change visualized lower cervical spine. No vertebral compression collapse or malalignment. [facility], , 10/26/2024 1:00 PM
== END | disposition home or self-care (01) ==
LOC: RADXRMAIN 11:50
PROVIDERS: ATTEND Internal Medicine
DX: S22.32XA Fracture of one rib, left side, initial encounter for closed fracture (principal); M47.814 Spondylosis without myelopathy or radiculopathy, thoracic region; M51.34 Other intervertebral disc degeneration, thoracic region
CPT/HCPCS: 72072

== ENCOUNTER → 2025-01-17 | Outpatient (CLI) | payer MEDICARE, OTHER ==
--- NOTE | 2025-01-17 09:44 | XR ---
EXAMINATION TYPE: XR lumbosacral spine min 4V DATE OF EXAM: 01/17/2025 9:17 AM COMPARISON: None. CLINICAL INDICATION: Male, 64 years old with history of M54.50 LOW BACK PAIN, pain TECHNIQUE: 5 view(s) obtained. FINDINGS: There are 5 lumbar-type vertebral bodies. Pedicles are intact. Some bridging spurring is present on t he right at L2-3. Anterior vertebral body spurring is present L2-3 L3-4. There is loss of disc height L4-5 posteriorly. Mild diffuse loss of disc height is present L5-S1 L3-4, L2-3 and posteriorly at L1 -2 and T12-L1. Minimal wedge deformity of T12 is present. No posterior wall displacement is evident. No spondylolisthesis is evident. Facet degenerative changes are in the lower lumbar spine IMPRESSION: 1. Diffuse degenerative disc changes within the lumbar spine appears greatest at the L4-5 level. 2. Spondylosis. [facility], , 01/17/2025 9:41 AM
== END | disposition home or self-care (01) ==
LOC: RADXRMAIN 09:00
PROVIDERS: ATTEND Internal Medicine
DX: M51.360 Other intervertebral disc degeneration, lumbar region with discogenic back pain only (principal); M47.816 Spondylosis without myelopathy or radiculopathy, lumbar region
CPT/HCPCS: 72110